=== PATIENT | female | born 1985 | race Caucasian/White ===

== ENCOUNTER 2016-10-30 21:24 | Emergency (ER) | payer MEDICAID ==
--- NOTE | 2016-10-30 21:32 | EDM.PDOC ---
ED HPI GENERAL MEDICAL PROBLEM - General Chief Complaint: Headache Stated Complaint: MYGRAIN Time Seen by Provider: 10/30/16 21:32 - History of Present Illness INITIAL COMMENTS - FREE TEXT/NARRATIVE: 1-year-old female presents emergency room with a very severe headache. The patient has almost daily headaches. She's been diagnosed migraines in the past she's recently moved up here from [place] she cannot recall which is taken form she's had this headache for over 24 hours it is much worse than normal and is not acting the same. Patient's has been even states that patients not right. Patient has severe bilateral pain she cannot recall how it started. She has some neck discomfort with this as well. Patient denies any recent fevers or chills she has some nausea no vomiting. Past medical history significant for recurrent almost daily headaches patient has had a tubal ligation no other medical concerns. Left Headache Pain Score (Numeric/FACES): 10 - Related Data Allergies Allergy/AdvReac Type Severity Reaction Status Date / Time morphine Allergy Hives Verified 10/30/16 21:34 Home Meds: Home Meds Levothyroxine [Synthroid] 100 mcg PO DAILY 10/30/16 [History] ED ROS GENERAL - Review of Systems Review Of Systems: See Below Constitutional: Reports: No Symptoms HEENT: Reports: Other (Photophobia) Respiratory: Reports: No Symptoms Cardiovascular: Reports: No Symptoms GI/Abdominal: Reports: Nausea. Denies: Abdominal Pain, Constipation, Diarrhea Neurological: Reports: Headache. Denies: Confusion, Dizziness, Numbness, Seizure, Difficulty Walking Psychiatric: Reports: No Symptoms - Physical Exam Exam: See Below Exam Limited By: No Limitations General Appearance: Alert, No Apparent Distress Eye Exam: Bilateral Eye: PERRL Ears: Normal External Exam, Normal Canal, Hearing Grossly Normal, Normal TMs Nose: Normal Inspection, Normal Mucosa, No Blood Throat/Mouth: Normal Inspection, Normal Lips, Normal Teeth, Normal Gums, Normal Oropharynx, Normal Voice, No Airway Compromise Head Exam: Atraumatic, Normocephalic Neck: Normal Inspection, Supple, Non-Tender, Full Range of Motion. No: Lymphadenopathy (L), Lymphadenopathy (R) Respiratory/Chest: No Respiratory Distress, Lungs Clear, Normal Breath Sounds Cardiovascular: Regular Rate, Rhythm, No Edema, No Murmur Neuro Exam (Abbreviated): Other (Cranial nerves II through XII grossly intact all muscle groups the upper extremities are equal and appropriate bilaterally. Limited lower extremity muscle testing is unrevealing) Course - Vital Signs Last Recorded V/S: Last Vital Signs Temp 36.3 C 10/30/16 21:32 Pulse 75 10/30/16 21:32 Resp 16 10/30/16 21:32 BP 120/92 H 10/30/16 21:32 Pulse Ox 98 10/30/16 21:32 - Orders/Labs/Meds Orders: Active Orders 24 hr Category Date Time Status Head wo Cont [CT] Stat Exams 10/30/16 21:43 Taken Meds: Medications Discontinued Medications Generic Name Dose Route Start Last Admin Trade Name Freq PRN Reason Stop Dose Admin Diphenhydramine HCl 50 mg 10/30/16 21:39 10/30/16 22:32 Benadryl IVPUSH 10/30/16 21:40 50 mg ONETIME ONE Administration Lactated Ringer's 1,000 mls @ 999 mls/hr 10/30/16 21:39 10/30/16 22:30 Ringers, Lactated IV 10/30/16 22:39 999 mls/hr .BOLUS ONE Administration Ketorolac Tromethamine 15 mg 10/30/16 23:41 10/30/16 23:45 Toradol IVPUSH 10/30/16 23:42 15 mg ONETIME ONE Administration Lidocaine HCl Confirm 10/30/16 22:16 Xylocaine 1% Administered 10/30/16 22:17 Dose 10 ml .ROUTE .STK-MED ONE Lidocaine HCl 10 ml 10/30/16 23:09 Xylocaine 1% INJECT 10/30/16 23:10 NOW STA Ondansetron HCl 4 mg 10/30/16 21:39 10/30/16 22:30 Zofran IVPUSH 10/30/16 21:40 4 mg ONETIME ONE Administration - Re-Assessments/Exams Free Text/Narrative Re-Assessment/Exam: 10/30/16 21:46 Patient is describing a headache much worse than she normally has with some neck tightness we'll go ahead and CT. 10/30/16 23:[address] is unremarkable she has received some Zofran and Benadryl with some improvement not quite to goal will give her 15 mg of Toradol. Anticipate discharge soon 10/30/16 23:58 Patient is doing better after getting the Toradol should this is been about 10 minutes she like to go home and get some rest Departure - Departure Time of Disposition: 23:58 Disposition: Home, Self-Care 01 Clinical Impression: Headache - Discharge Information Referrals: PCP,None [Primary Care Provider] - Forms: ED Department Discharge Additional Instructions: Return to the emergency room with any questions problems worsening symptoms. Diagnosis tonight is that of a headache with a history of migraines however the nature and character of this one was somewhat different, it certainly had some migrainous tendencies. Go home and get a good nights sleep he may drink clear liquids you get home but no heavy food. Follow-up in the Hospital clinic later this week to establish with a provider. [phone] - My Orders Last 24 Hours: My Active Orders 10/30/16 21:43 Head wo Cont [CT] Stat - Assessment/Plan Last 24 Hours: My Active Orders 10/30/16 21:43 Head wo Cont [CT] Stat
[2016-10-30 21:34] VITALS: BP 120/92
[2016-10-30] MEDS ORDERED: Ondansetron 4 MG/2 ML SDV IVPUSH ONE (21:39)
[2016-10-30] MEDS ORDERED: diphenhydrAMINE 50 MG/ML SDV IVPUSH ONE (21:39)
[2016-10-30] MEDS ORDERED: Lactated Ringers 1,000 ML IV ONE (21:39)
[2016-10-30] MEDS ORDERED: Lidocaine 1% 10 ML MDV ONE (22:16)
[2016-10-30] MEDS ORDERED: Lidocaine 1% 50 ML MDV INJECT STA (23:09)
[2016-10-30] MEDS ORDERED: Ketorolac 15 MG/ML SDV IVPUSH ONE (23:41)
--- NOTE | 2016-11-01 08:50 | CT ---
Head CT Technique: Multiple axial sections through the brain were obtained. Intravenous contrast was not utilized. Comparison: No previous intracranial imaging. Findings: Ventricles along with basal cisterns and sulci over the convexities are within normal limits for the patient's age. No abnormal parenchymal densities are seen. No evidence of intracranial hemorrhage. No midline shift or mass effect is seen. Bone window settings were reviewed which appear within normal limits for the patient's age. Visualized sinuses are clear. Impression: 1. No acute intracranial abnormality is identified on noncontrast head CT study. Diagnostic code #1 Agree with preliminary report issued by [facility] ([facility] preliminary report dictated on 10/30/16, 11:55 PM Central Time) [facility]
== END 2016-10-31 00:08 | disposition home or self-care (01) ==
LOC: JD.ED 21:24
DX: R51 Headache (principal); Z79.899 Other long term (current) drug therapy; Z88.5 Allergy status to narcotic agent; Z98.51 Tubal ligation status
CPT/HCPCS: 70450; 96361; 96374; 96375; 99284; J1200; J1885; J2405; J7120

== ENCOUNTER 2017-01-31 18:31 | Emergency (ER) | payer MEDICAID ==
[2017-01-31 18:52] VITALS: BP 125/86
[2017-01-31] MEDS ORDERED: Sodium Chloride 0.9% 10 ML Syringe FLUSH PRN ×2 (19:03→19:38)
[2017-01-31] MEDS ORDERED: HYDROmorphone 1 MG/ML Syringe IVPUSH ONE ×2 (19:05→22:10)
[2017-01-31] MEDS ORDERED: Ondansetron 4 MG/2 ML SDV IVPUSH ONE (19:05)
--- NOTE | 2017-01-31 19:11 | EDM.PDOC ---
ED HPI GENERAL MEDICAL PROBLEM - General Chief Complaint: Abdominal Pain Stated Complaint: NAUSEA,DIZZINESS,BACK PAIN Time Seen by Provider: 01/31/17 18:52 Source of Information: Reports: Patient, Family History Limitations: Reports: No Limitations - History of Present Illness INITIAL COMMENTS - FREE TEXT/NARRATIVE: The patient presents with left upper back pain that radiates to her chest. She said this started yesterday and she describes the pain as sharp. She says the pain is worse with taking a deep breath and she feels a little short of breath. She may have some upper abdominal pain She has nausea and she vomited yesterday. She had diarrhea also. She did not injury herself. She has a history of a PE years ago that she was treated for. She was not told what caused it. She does not smoke. She does not take control. She had no long car ride or plane ride. She has not had recent surgery. She has no edema or pain in he legs. She denies fever, chills, or cough. She has no numbness or weakness. Onset: Gradual Duration: Day(s): (Yesterday) Location: Reports: Chest, Back Quality: Reports: Sharp Severity: Moderate Improves with: Reports: None Worsens with: Reports: Breathing Context: Reports: Other (She did not injure her back) Associated Symptoms: Reports: Chest Pain, Nausea/Vomiting, Shortness of Breath. Denies: Cough, Fever/Chills, Headaches Left Upper Abdomen Pain Score (Numeric/FACES): 8 - Related Data Allergies Allergy/AdvReac Type Severity Reaction Status Date / Time morphine Allergy Hives Verified 01/31/17 18:46 Home Meds: Home Meds Levothyroxine [Synthroid] 75 mcg PO DAILY 10/30/16 [History] Hydrocodone/Acetaminophen [Hydrocodon-Acetaminophen 5-325] 1 - 2 each PO Q6HR PRN #20 tablet 01/31/17 [Rx] Naproxen [Naprosyn] 500 mg PO Q12HR PRN #30 tablet 01/31/17 [Rx] Ondansetron [Zofran ODT] 4 mg PO Q6H PRN #20 tab.dis 01/31/17 [Rx] metFORMIN HCl [Metformin HCl] 500 mg PO DAILY 01/31/17 [History] Past Medical History [employer] History: Reports: Neurological History: Reports: Migraines Endocrine/Metabolic History: Reports: Hypothyroidism Social & Family History - Tobacco Use Smoking Status *Q: Never Smoker Second Hand Smoke Exposure: No - Caffeine Use Caffeine Use: Reports: None - Recreational Drug Use Recreational Drug Use: No ED ROS GENERAL - Review of Systems Review Of Systems: See Below Constitutional: Reports: No Symptoms HEENT: Reports: No Symptoms Respiratory: Reports: Shortness of Breath. Denies: Cough Cardiovascular: Reports: Chest Pain Endocrine: Reports: No Symptoms GI/Abdominal: Reports: Abdominal Pain (Maybe some epigastric pain), Diarrhea, Nausea, Vomiting : Reports: No Symptoms Musculoskeletal: Reports: Back Pain (Left upper back) ED EXAM, GI/ABD - Physical Exam Exam: See Below Exam Limited By: No Limitations General Appearance: Alert, No Apparent Distress Ears: Normal External Exam Nose: Normal Inspection Head: Atraumatic, Normocephalic Neck: Normal Inspection Respiratory/Chest: No Respiratory Distress, Lungs Clear, Normal Breath Sounds Cardiovascular: Regular Rate, Rhythm, No Edema, No Murmur GI/Abdominal Exam: Soft, No Organomegaly, No Mass, Tender (Mild tenderness to the epigastric region) Back Exam: Other (Mild pain upon palpation to the left upper back) Extremities: Normal Inspection, Non-Tender. No: Pedal Edema Neurological: Alert, Oriented, No Motor/Sensory Deficits Course - Vital Signs Last Recorded V/S: Last Vital Signs Temp 98.4 F 01/31/17 18:48 Pulse 78 01/31/17 18:48 Resp 12 01/31/17 18:48 BP 125/86 01/31/17 18:48 Pulse Ox 98 01/31/17 18:48 Orthostatic Blood Pressure [ 123/84 Standing] Orthostatic Blood Pressure [ 116/83 Sitting] Orthostatic Blood Pressure [ 111/77 Supine] - Orders/Labs/Meds Orders: Active Orders 24 hr Category Date Time Status Cardiac Monitoring [RC] . DIRECTED Care 01/31/17 19:03 Active EKG Documentation Completion [RC] STAT Care 01/31/17 19:04 Active Oxygen Therapy [RC] PRN Care 01/31/17 19:03 Active Peripheral IV Care [RC] . DIRECTED Care 01/31/17 19:04 Active CXR [Chest 2V] [CR] Stat Exams 01/31/17 22:34 Taken Sodium Chloride 0.9% [Normal Saline] 1,000 ml Med 01/31/17 19:15 Active IV ASDIRECTED Sodium Chloride 0.9% [Normal Saline] 100 ml Med 01/31/17 19:45 Active IV ASDIRECTED Sodium Chloride 0.9% [Saline Flush] Med 01/31/17 19:03 Active 10 ml FLUSH ASDIRECTED PRN Sodium Chloride 0.9% [Saline Flush] Med 01/31/17 19:38 Active 10 ml FLUSH ONETIME PRN Peripheral IV Insertion Adult [OM.PC] Stat Oth 01/31/17 19:03 Ordered Medication Orders Sodium Chloride (Normal Saline) 1,000 mls @ 125 mls/hr IV ASDIRECTED EZIO Last Admin: 01/31/17 22:03 Dose: 125 mls/hr Sodium Chloride (Normal Saline) 100 mls @ 80 mls/hr IV ASDIRECTED EZIO Sodium Chloride (Saline Flush) 10 ml FLUSH ASDIRECTED PRN PRN Reason: Keep Vein Open Sodium Chloride (Saline Flush) 10 ml FLUSH ONETIME PRN PRN Reason: IV FLUSH Labs: Laboratory Tests 01/31/17 01/31/17 01/31/17 Range/Units 20:12 20:12 20:12 WBC 8.16 (3.98-10.04) K/mm3 RBC 4.87 (3.98-5.22) M/mm3 Hgb 13.6 (11.2-15.7) gm/L Hct 41.5 (34.1-44.9) % MCV 85.2 (79.4-94.8) fl MCH 27.9 (25.6-32.2) pg MCHC 32.8 (32.2-35.5) g/dl RDW Std Deviation 44.1 (36.4-46.3) fL Plt Count 261 (182-369) K/mm3 MPV 11.1 (9.4-12.3) fl Neut % (Auto) 61.0 (34.0-71.1) % Lymph % (Auto) 24.1 (19.3-51.7) % [place] % (Auto) 8.5 (4.7-12.5) % Eos % (Auto) 5.8 (0.7-5.8) Baso % (Auto) 0.2 (0.1-1.2) % Neut # (Auto) 4.98 (1.56-6.13) K/mm3 Lymph # (Auto) 1.97 (1.18-3.74) K/mm3 [place] # (Auto) 0.69 H (0.24-0.36) K/mm3 Eos # (Auto) 0.47 H (0.04-0.36) K/mm3 Baso # (Auto) 0.02 (0.01-0.08) K/mm3 D-Dimer, Quantitative (0.19-0.59) mg/L Sodium 141 (136-145) mEq/L Potassium 3.5 (3.5-5.1) mEq/L Chloride 108 H (98-107) mEq/L Carbon Dioxide 23 (21-32) mEq/L Anion Gap 13.5 (5-15) BUN 15 (7-18) mg/dL Creatinine 0.9 (0.55-1.02) mg/dL Est Cr Clr Drug Dosing 74.23 mL/min Estimated GFR (MDRD) > 60 (>60) mL/min BUN/Creatinine Ratio 16.7 (14-18) Glucose 93 (74-106) mg/dL Calcium 9.1 (8.5-10.1) mg/dL Total Bilirubin 0.3 (0.2-1.0) mg/dL AST 27 (15-37) U/L ALT 42 (14-59) U/L Alkaline Phosphatase 44 L (46-116) U/L Troponin I < 0.017 (0.00-0.056) ng/mL Total Protein 7.4 (6.4-8.2) g/dl Albumin 3.6 (3.4-5.0) g/dl Globulin 3.8 gm/dL Albumin/Globulin Ratio 1.0 (1-2) Lipase 155 (73-393) U/L HCG, Qual Negative (NEGATIVE) Urine Color (Yellow) Urine Appearance (Clear) Urine pH (5.0-8.0) Ur Specific [place] (1.005-1.030) Urine Protein (Negative) Urine Glucose (UA) (Negative) Urine Ketones (Negative) Urine Occult Blood (Negative) Urine Nitrite (Negative) Urine Bilirubin (Negative) Urine Urobilinogen (0.2-1.0) Ur Leukocyte Esterase (Negative) Urine RBC (0-5) /hpf Urine WBC (0-5) /hpf Ur Epithelial Cells (0-5) /hpf Urine Bacteria (FEW) /hpf Urine Mucus (FEW) /hpf 01/31/17 01/31/17 Range/Units 21:12 22:07 WBC (3.98-10.04) K/mm3 RBC (3.98-5.22) M/mm3 Hgb (11.2-15.7) gm/L Hct (34.1-44.9) % MCV (79.4-94.8) fl MCH (25.6-32.2) pg MCHC (32.2-35.5) g/dl RDW Std Deviation (36.4-46.3) fL Plt Count (182-369) K/mm3 MPV (9.4-12.3) fl Neut % (Auto) (34.0-71.1) % Lymph % (Auto) (19.3-51.7) % [place] % (Auto) (4.7-12.5) % Eos % (Auto) (0.7-5.8) Baso % (Auto) (0.1-1.2) % Neut # (Auto) (1.56-6.13) K/mm3 Lymph # (Auto) (1.18-3.74) K/mm3 [place] # (Auto) (0.24-0.36) K/mm3 Eos # (Auto) (0.04-0.36) K/mm3 Baso # (Auto) (0.01-0.08) K/mm3 D-Dimer, Quantitative 0.59 (0.19-0.59) mg/L Sodium (136-145) mEq/L Potassium (3.5-5.1) mEq/L Chloride (98-107) mEq/L Carbon Dioxide (21-32) mEq/L Anion Gap (5-15) BUN (7-18) mg/dL Creatinine (0.55-1.02) mg/dL Est Cr Clr Drug Dosing mL/min Estimated GFR (MDRD) (>60) mL/min BUN/Creatinine Ratio (14-18) Glucose (74-106) mg/dL Calcium (8.5-10.1) mg/dL Total Bilirubin (0.2-1.0) mg/dL AST (15-37) U/L ALT (14-59) U/L Alkaline Phosphatase (46-116) U/L Troponin I (0.00-0.056) ng/mL Total Protein (6.4-8.2) g/dl Albumin (3.4-5.0) g/dl Globulin gm/dL Albumin/Globulin Ratio (1-2) Lipase (73-393) U/L HCG, Qual (NEGATIVE) Urine Color Yellow (Yellow) Urine Appearance Clear (Clear) Urine pH 6.0 (5.0-8.0) Ur Specific [place] 1.025 (1.005-1.030) Urine Protein Negative (Negative) Urine Glucose (UA) Negative (Negative) Urine Ketones Negative (Negative) Urine Occult Blood 3+ H (Negative) Urine Nitrite Negative (Negative) Urine Bilirubin Negative (Negative) Urine Urobilinogen 0.2 (0.2-1.0) Ur Leukocyte Esterase Negative (Negative) Urine RBC 30-40 H (0-5) /hpf Urine WBC Not seen (0-5) /hpf Ur Epithelial Cells Not seen (0-5) /hpf Urine Bacteria Few (FEW) /hpf Urine Mucus Moderate H (FEW) /hpf Meds: Medications Generic Name Dose Route Start Last Admin Trade Name Freq PRN Reason Stop Dose Admin Sodium Chloride 1,000 mls @ 125 mls/hr 01/31/17 19:15 01/31/17 22:03 Normal Saline IV 125 mls/hr ASDIRECTED EZIO Administration Sodium Chloride 100 mls @ 80 mls/hr 01/31/17 19:45 Normal Saline IV ASDIRECTED EZIO Sodium Chloride 10 ml 01/31/17 19:03 Saline Flush FLUSH ASDIRECTED PRN Keep Vein Open Sodium Chloride 10 ml 01/31/17 19:38 Saline Flush FLUSH ONETIME PRN IV FLUSH Discontinued Medications Generic Name Dose Route Start Last Admin Trade Name Freq PRN Reason Stop Dose Admin Hydromorphone HCl 1 mg 01/31/17 19:05 Dilaudid IVPUSH 01/31/17 19:06 ONETIME ONE Hydromorphone HCl 1 mg 01/31/17 20:06 01/31/17 20:14 Dilaudid IM 01/31/17 20:07 1 mg ONETIME ONE Administration Hydromorphone HCl 1 mg 01/31/17 22:10 01/31/17 22:14 Dilaudid IVPUSH 01/31/17 22:11 1 mg ONETIME ONE Administration Lidocaine HCl Confirm 01/31/17 21:26 Xylocaine-Mpf 1% Administered 01/31/17 21:27 Dose 2 mls @ as directed .ROUTE .STK-MED ONE Iopamidol 100 ml 01/31/17 19:38 Isovue-370 (76%) IVPUSH 01/31/17 19:39 ONETIME ONE Ketorolac Tromethamine 30 mg 01/31/17 23:08 01/31/17 23:12 Toradol IVPUSH 01/31/17 23:09 30 mg ONETIME ONE Administration Ondansetron HCl 4 mg 01/31/17 19:05 Zofran IVPUSH 01/31/17 19:06 ONETIME ONE Ondansetron HCl 4 mg 01/31/17 20:05 01/31/17 20:13 Zofran Odt PO 01/31/17 20:06 4 mg ONETIME ONE Administration - Re-Assessments/Exams Free Text/Narrative Re-Assessment/Exam: 01/31/17 19:11 I ordered an IV NS at 125mL/hr, zofran 4mg IV, dilaudid 1mg IV, labs, UA, EKG and a CT angio of her chest. 01/31/17 23:16 Her EKG shows a NSR with no acute changes. My nurses could not get an IV with multiple attempts. We called in Katie one of our CRNAs and she was able to get a small IV. I could not get the angio of her chest. I then added a D-dimer that was negative. Her CBC and CMP look good. Her troponin is negative. Her HCG was negative. Her UA had some blood but she is on her period. I had to give her the zofran orally and the dilaudid IM. She had more pain so I gave her more dilaudid IV. This appears to be some pleurisy. I will give her some toradol here and I will get her a prescription for naprosyn, hydrocodone and some zofran. Departure - Departure Time of Disposition: 23:20 Disposition: Home, Self-Care 01 Condition: Good Clinical Impression: Pleurisy, Nausea - Discharge Information Prescriptions: Hydrocodone/Acetaminophen [Hydrocodon-Acetaminophen 5-325] 1 - 2 each PO Q6HR PRN #20 tablet PRN Reason: Pain Naproxen [Naprosyn] 500 mg PO Q12HR PRN #30 tablet PRN Reason: Pain Ondansetron [Zofran ODT] 4 mg PO Q6H PRN #20 tab.dis PRN Reason: Nausea/Vomiting Referrals: Carol Bal MD [Primary Care Provider] - 1 Week Forms: ED Department Discharge Additional Instructions: Take the zofran as needed for nausea. Take the naprosyn and hydrocodone as needed for pain. Follow up with Dr Bal next week. Please return if you are worse such as more chest pain, shortness of breath or it you cannot keep any food or water down or if you do not feel right. - My Orders Last 24 Hours: My Active Orders 01/31/17 19:03 Cardiac Monitoring [RC] . DIRECTED Oxygen Therapy [RC] PRN Sodium Chloride 0.9% [Saline Flush] 10 ml FLUSH ASDIRECTED PRN Peripheral IV Insertion Adult [OM.PC] Stat 01/31/17 19:04 EKG Documentation Completion [RC] STAT Peripheral IV Care [RC] . DIRECTED 01/31/17 19:15 Sodium Chloride 0.9% [Normal Saline] 1,000 ml IV ASDIRECTED 01/31/17 19:38 Sodium Chloride 0.9% [Saline Flush] 10 ml FLUSH ONETIME PRN 01/31/17 19:45 Sodium Chloride 0.9% [Normal Saline] 100 ml IV ASDIRECTED 01/31/17 22:34 CXR [Chest 2V] [CR] Stat - Assessment/Plan Last 24 Hours: My Active Orders 01/31/17 19:03 Cardiac Monitoring [RC] . DIRECTED Oxygen Therapy [RC] PRN Sodium Chloride 0.9% [Saline Flush] 10 ml FLUSH ASDIRECTED PRN Peripheral IV Insertion Adult [OM.PC] Stat 01/31/17 19:04 EKG Documentation Completion [RC] STAT Peripheral IV Care [RC] . DIRECTED 01/31/17 19:15 Sodium Chloride 0.9% [Normal Saline] 1,000 ml IV ASDIRECTED 01/31/17 19:38 Sodium Chloride 0.9% [Saline Flush] 10 ml FLUSH ONETIME PRN 01/31/17 19:45 Sodium Chloride 0.9% [Normal Saline] 100 ml IV ASDIRECTED 01/31/17 22:34 CXR [Chest 2V] [CR] Stat
[2017-01-31] MEDS ORDERED: Sodium Chloride 0.9% 1,000 ML IV SCH (19:15)
[2017-01-31] MEDS ORDERED: Iopamidol 755 Mg/ML 100 ML Bottle IVPUSH ONE (19:38)
[2017-01-31] MEDS ORDERED: Sodium Chloride 0.9% 100 ML IV SCH (19:45)
[2017-01-31] MEDS ORDERED: Ondansetron 4 MG Tab.DIS PO ONE (20:05)
[2017-01-31] MEDS ORDERED: HYDROmorphone 1 MG/ML Syringe IM ONE (20:06)
[2017-01-31] MEDS ORDERED: Lidocaine 1% 2 ML ONE (21:26)
--- NOTE | 2017-01-31 22:01 | PCM.SN ---
- Free Text/Narrative Note: Start: 2030 Stop: 2153 Anesthesia requested for IV start/IV access for CT with contrast. 22 gauge to right inner wrist started times 3 attempts. Site localized with 1% lidocaine, patient tolerated procedure well. Site patent and intact, flushed with 20 ml's of normal saline. Attempted to access antecubital right arm via US for CT scan times one attempt with no success.
[2017-01-31] MEDS ORDERED: Ketorolac 30 MG/ML SDV IVPUSH ONE (23:08)
--- NOTE | 2017-02-01 08:58 | CR ---
Chest: Two views of the chest were obtained. Comparison: No prior chest x-ray. Heart size and mediastinum are normal. Lungs are clear. Bony structures are unremarkable. Surgical clips incidentally are noted from prior cholecystectomy. Impression: 1. Nothing acute is identified on two-view chest x-ray. Diagnostic code #2
== END 2017-01-31 23:30 | disposition home or self-care (01) ==
LOC: SUPCPDRO 18:31 → JD.ED 18:31
DX: R09.1 Pleurisy (principal); R11.0 Nausea; E03.9 Hypothyroidism, unspecified; Z79.84 Long term (current) use of oral hypoglycemic drugs; Z79.899 Other long term (current) drug therapy; Z88.5 Allergy status to narcotic agent
CPT/HCPCS: 36415; 71020; 80053; 81001; 83690; 84484; 84703; 85025; 85379; 93005; 96361; 96372; 96374; 96375; 99284; A9270; J1170; J1885; J7040; 93010

== ENCOUNTER 2017-02-06 13:19 | Emergency (ER) | payer SELFPAY ==
[2017-02-06 13:43] VITALS: BP 132/93
[2017-02-06] MEDS ORDERED: Ondansetron 4 MG/2 ML SDV IVPUSH ONE (14:15)
[2017-02-06] MEDS ORDERED: Sodium Chloride 0.9% 10 ML Syringe FLUSH PRN (14:15)
[2017-02-06] MEDS ORDERED: Sodium Chloride 0.9% 1,000 ML IV STA (14:15)
[2017-02-06] MEDS ORDERED: HYDROmorphone 1 MG/ML Syringe IVPUSH ONE (14:17)
--- NOTE | 2017-02-06 16:31 | EDM.PDOC ---
ED HPI GENERAL MEDICAL PROBLEM - General Chief Complaint: Gastrointestinal Problem Stated Complaint: NAUSEA,CHEST PAIN, BLOOD IN URINE Time Seen by Provider: 02/06/17 13:43 Source of Information: Reports: Patient History Limitations: Reports: No Limitations - History of Present Illness INITIAL COMMENTS - FREE TEXT/NARRATIVE: The patient presents with nausea and lower abdominal pain. That started a few days ago. The pain is cramping at times. She also had some blood from her stool. She has decreased appetite. She was in the ER 1 week ago for chest pain. That is better but not gone. She did stop the eleve she was on. She has no diarrhea. She has no fever or chills. She has no dysuria. She does not have a gallbladder or an appendix. Onset: Gradual Duration: Day(s): (3) Location: Reports: Abdomen Quality: Reports: Other (Cramping) Severity: Moderate Improves with: Reports: None Worsens with: Reports: None Associated Symptoms: Reports: Chest Pain. Denies: Cough, Fever/Chills, Nausea/ Vomiting, Shortness of Breath Abdomen Pain Score (Numeric/FACES): 8 - Related Data Allergies Allergy/AdvReac Type Severity Reaction Status Date / Time morphine Allergy Hives Verified 02/06/17 13:38 Home Meds: Home Meds Levothyroxine [Synthroid] 75 mcg PO DAILY 10/30/16 [History] Ondansetron [Zofran ODT] 4 mg PO Q6H PRN #20 tab.dis 01/31/17 [Rx] metFORMIN HCl [Metformin HCl] 500 mg PO DAILY 01/31/17 [History] Ondansetron [Zofran ODT] 4 mg PO Q6H PRN #20 tab.dis 02/06/17 [Rx] Past Medical History [employer] History: Reports: Neurological History: Reports: Migraines Endocrine/Metabolic History: Reports: Hypothyroidism, Other (See Below) Other Endocrine/Metabolic History: recently started on Metformin for insulin resistance Social & Family History - Tobacco Use Smoking Status *Q: Never Smoker Second Hand Smoke Exposure: Yes - Caffeine Use Caffeine Use: Reports: Coffee, Energy Drinks - Recreational Drug Use Recreational Drug Use: No ED ROS GENERAL - Review of Systems Review Of Systems: See Below Constitutional: Reports: No Symptoms HEENT: Reports: No Symptoms Respiratory: Reports: No Symptoms Cardiovascular: Reports: Chest Pain Endocrine: Reports: No Symptoms GI/Abdominal: Reports: Abdominal Pain, Nausea : Reports: No Symptoms Musculoskeletal: Reports: No Symptoms Skin: Reports: No Symptoms ED EXAM, GI/ABD - Physical Exam Exam: See Below Exam Limited By: No Limitations General Appearance: Alert, No Apparent Distress Ears: Normal External Exam Nose: Normal Inspection Head: Atraumatic, Normocephalic Neck: Normal Inspection Respiratory/Chest: No Respiratory Distress, Lungs Clear, Normal Breath Sounds Cardiovascular: Regular Rate, Rhythm, No Edema, No Murmur GI/Abdominal Exam: Soft, No Organomegaly, No Mass, Tender (Moderate pain upon palpation to the lower abdomen) Course - Vital Signs Last Recorded V/S: Last Vital Signs Temp 98.0 F 02/06/17 13:39 Pulse 85 02/06/17 13:39 Resp 18 02/06/17 13:39 BP 132/93 H 02/06/17 13:39 Pulse Ox 96 02/06/17 13:39 - Orders/Labs/Meds Orders: Active Orders 24 hr Category Date Time Status Peripheral IV Care [RC] . DIRECTED Care 02/06/17 14:16 Active Abdomen Series w Chest 1V [CR] Stat Exams 02/06/17 14:15 Taken Sodium Chloride 0.9% [Saline Flush] Med 02/06/17 14:15 Active 10 ml FLUSH ASDIRECTED PRN ED Antiemetic Medication Reflex [OM.PC] Stat Oth 02/06/17 14:15 Ordered Peripheral IV Insertion Adult [OM.PC] Stat Oth 02/06/17 14:15 Ordered Medication Orders Sodium Chloride (Saline Flush) 10 ml FLUSH ASDIRECTED PRN PRN Reason: Keep Vein Open Last Admin: 02/06/17 14:32 Dose: 10 ml Labs: Laboratory Tests 02/06/17 02/06/17 02/06/17 Range/Units 14:00 14:00 14:00 WBC 10.96 H (3.98-10.04) K/mm3 RBC 4.77 (3.98-5.22) M/mm3 Hgb 13.2 (11.2-15.7) gm/L Hct 41.5 (34.1-44.9) % MCV 87.0 (79.4-94.8) fl MCH 27.7 (25.6-32.2) pg MCHC 31.8 L (32.2-35.5) g/dl RDW Std Deviation 45.6 (36.4-46.3) fL Plt Count 319 (182-369) K/mm3 MPV 11.4 (9.4-12.3) fl Neut % (Auto) 74.3 H (34.0-71.1) % Lymph % (Auto) 17.9 L (19.3-51.7) % [place] % (Auto) 3.6 L (4.7-12.5) % Eos % (Auto) 3.7 (0.7-5.8) Baso % (Auto) 0.3 (0.1-1.2) % Neut # (Auto) 8.15 H (1.56-6.13) K/mm3 Lymph # (Auto) 1.96 (1.18-3.74) K/mm3 [place] # (Auto) 0.39 H (0.24-0.36) K/mm3 Eos # (Auto) 0.41 H (0.04-0.36) K/mm3 Baso # (Auto) 0.03 (0.01-0.08) K/mm3 Sodium 140 (136-145) mEq/L Potassium 4.5 (3.5-5.1) mEq/L Chloride 110 H (98-107) mEq/L Carbon Dioxide 21 (21-32) mEq/L Anion Gap 13.5 (5-15) BUN 12 (7-18) mg/dL Creatinine 0.8 (0.55-1.02) mg/dL Est Cr Clr Drug Dosing 83.51 mL/min Estimated GFR (MDRD) > 60 (>60) mL/min BUN/Creatinine Ratio 15.0 (14-18) Glucose 121 H (74-106) mg/dL Calcium 9.2 (8.5-10.1) mg/dL Total Bilirubin 0.2 (0.2-1.0) mg/dL AST 33 (15-37) U/L ALT 43 (14-59) U/L Alkaline Phosphatase 44 L (46-116) U/L Troponin I < 0.017 (0.00-0.056) ng/mL Total Protein 7.6 (6.4-8.2) g/dl Albumin 3.6 (3.4-5.0) g/dl Globulin 4.0 gm/dL Albumin/Globulin Ratio 0.9 L (1-2) Lipase 176 (73-393) U/L HCG, Qual Negative (NEGATIVE) Urine Color (Yellow) Urine Appearance (Clear) Urine pH (5.0-8.0) Ur Specific [place] (1.005-1.030) Urine Protein (Negative) Urine Glucose (UA) (Negative) Urine Ketones (Negative) Urine Occult Blood (Negative) Urine Nitrite (Negative) Urine Bilirubin (Negative) Urine Urobilinogen (0.2-1.0) Ur Leukocyte Esterase (Negative) Urine RBC (0-5) /hpf Urine WBC (0-5) /hpf Ur Epithelial Cells (0-5) /hpf Amorphous Sediment (NOT SEEN) /hpf Urine Bacteria (FEW) /hpf Urine Mucus (FEW) /hpf 02/06/17 Range/Units 14:30 WBC (3.98-10.04) K/mm3 RBC (3.98-5.22) M/mm3 Hgb (11.2-15.7) gm/L Hct (34.1-44.9) % MCV (79.4-94.8) fl MCH (25.6-32.2) pg MCHC (32.2-35.5) g/dl RDW Std Deviation (36.4-46.3) fL Plt Count (182-369) K/mm3 MPV (9.4-12.3) fl Neut % (Auto) (34.0-71.1) % Lymph % (Auto) (19.3-51.7) % [place] % (Auto) (4.7-12.5) % Eos % (Auto) (0.7-5.8) Baso % (Auto) (0.1-1.2) % Neut # (Auto) (1.56-6.13) K/mm3 Lymph # (Auto) (1.18-3.74) K/mm3 [place] # (Auto) (0.24-0.36) K/mm3 Eos # (Auto) (0.04-0.36) K/mm3 Baso # (Auto) (0.01-0.08) K/mm3 Sodium (136-145) mEq/L Potassium (3.5-5.1) mEq/L Chloride (98-107) mEq/L Carbon Dioxide (21-32) mEq/L Anion Gap (5-15) BUN (7-18) mg/dL Creatinine (0.55-1.02) mg/dL Est Cr Clr Drug Dosing mL/min Estimated GFR (MDRD) (>60) mL/min BUN/Creatinine Ratio (14-18) Glucose (74-106) mg/dL Calcium (8.5-10.1) mg/dL Total Bilirubin (0.2-1.0) mg/dL AST (15-37) U/L ALT (14-59) U/L Alkaline Phosphatase (46-116) U/L Troponin I (0.00-0.056) ng/mL Total Protein (6.4-8.2) g/dl Albumin (3.4-5.0) g/dl Globulin gm/dL Albumin/Globulin Ratio (1-2) Lipase (73-393) U/L HCG, Qual (NEGATIVE) Urine Color Yellow (Yellow) Urine Appearance Clear (Clear) Urine pH 7.0 (5.0-8.0) Ur Specific [place] 1.020 (1.005-1.030) Urine Protein Negative (Negative) Urine Glucose (UA) Negative (Negative) Urine Ketones Negative (Negative) Urine Occult Blood Negative (Negative) Urine Nitrite Negative (Negative) Urine Bilirubin Negative (Negative) Urine Urobilinogen 0.2 (0.2-1.0) Ur Leukocyte Esterase Negative (Negative) Urine RBC 0-5 (0-5) /hpf Urine WBC 0-5 (0-5) /hpf Ur Epithelial Cells 0-5 (0-5) /hpf Amorphous Sediment Moderate H (NOT SEEN) /hpf Urine Bacteria Few (FEW) /hpf Urine Mucus Few (FEW) /hpf Meds: Medications Generic Name Dose Route Start Last Admin Trade Name Freq PRN Reason Stop Dose Admin Sodium Chloride 10 ml 02/06/17 14:15 02/06/17 14:32 Saline Flush FLUSH 10 ml ASDIRECTED PRN Administration Keep Vein Open Discontinued Medications Generic Name Dose Route Start Last Admin Trade Name Freq PRN Reason Stop Dose Admin Hydromorphone HCl 1 mg 02/06/17 14:17 02/06/17 14:39 Dilaudid IVPUSH 02/06/17 14:18 1 mg ONETIME ONE Administration Sodium Chloride 1,000 mls @ 1,000 mls/hr 02/06/17 14:15 02/06/17 14:30 Normal Saline IV 02/06/17 15:14 1,000 mls/hr .BOLUS STA Administration Ondansetron HCl 4 mg 02/06/17 14:15 02/06/17 14:37 Zofran IVPUSH 02/06/17 14:16 4 mg ONETIME ONE Administration - Re-Assessments/Exams Free Text/Narrative Re-Assessment/Exam: 02/06/17 16:32 I ordered an IV NS 1L bolus, zofran 4mg IV, dilaudid 1mg IV, labs and UA. Her CBC looks good. Her CMP shows a slightly elevated glucose 121. Her troponin is negative. Her HCG is negative. Her UA shows no UTI. She feels better. I will get her on some zofran. Departure - Departure Time of Disposition: 16:35 Disposition: Home, Self-Care 01 Condition: Good Clinical Impression: Abdominal pain, Gastroenteritis - Discharge Information Prescriptions: Ondansetron [Zofran ODT] 4 mg PO Q6H PRN #20 tab.dis PRN Reason: Nausea/Vomiting Referrals: Didi Bal, [employer] [Primary Care Provider] - 2 Days Additional Instructions: Take zofran as needed for nausea and vomiting. Follow up with Didi Bal. Please return if you are worse. - My Orders Last 24 Hours: My Active Orders 02/06/17 14:15 Abdomen Series w Chest 1V [CR] Stat Sodium Chloride 0.9% [Saline Flush] 10 ml FLUSH ASDIRECTED PRN ED Antiemetic Medication Reflex [OM.PC] Stat Peripheral IV Insertion Adult [OM.PC] Stat 02/06/17 14:16 Peripheral IV Care [RC] . DIRECTED - Assessment/Plan Last 24 Hours: My Active Orders 02/06/17 14:15 Abdomen Series w Chest 1V [CR] Stat Sodium Chloride 0.9% [Saline Flush] 10 ml FLUSH ASDIRECTED PRN ED Antiemetic Medication Reflex [OM.PC] Stat Peripheral IV Insertion Adult [OM.PC] Stat 02/06/17 14:16 Peripheral IV Care [RC] . DIRECTED
--- NOTE | 2017-02-07 07:07 | CR ---
Abdominal series: Frontal view of the chest was obtained as well as supine and upright views of the abdomen. Comparison: Prior chest x-ray of 01/31/17. Heart size and mediastinum are normal. Lungs are clear. No free air is seen. Surgical clips are seen from prior cholecystectomy. Previous sterilization clips are present within the pelvis. Bowel gas pattern is normal. No abnormal calcifications or soft tissue abnormality is seen. Impression: 1. Incidental findings. Nothing acute is seen on abdominal series. Diagnostic code #2
== END 2017-02-06 16:50 | disposition home or self-care (01) ==
LOC: JD.ED 13:19
DX: K52.9 Noninfective gastroenteritis and colitis, unspecified (principal); Z88.5 Allergy status to narcotic agent; Z79.84 Long term (current) use of oral hypoglycemic drugs; Z79.899 Other long term (current) drug therapy
CPT/HCPCS: 36415; 74022; 80053; 81001; 83690; 84484; 84703; 85025; 96361; 96374; 96375; 99284; J1170; J2405; J7040; J7050

== ENCOUNTER 2017-02-08 00:03 | Emergency (ER) | payer SELFPAY ==
[2017-02-08 00:14] VITALS: BP 116/103
[2017-02-08] MEDS ORDERED: Sodium Chloride 0.9% 1,000 ML IV SCH (01:45)
--- NOTE | 2017-02-08 01:48 | EDM.PDOC ---
ED HPI GENERAL MEDICAL PROBLEM - General Chief Complaint: Abdominal Pain Stated Complaint: LOWER ABDOINAL PAIN ECT Time Seen by Provider: 02/08/17 00:49 Source of Information: Reports: Patient, Family (), Old Records, RN Notes Reviewed History Limitations: Reports: No Limitations - History of Present Illness INITIAL COMMENTS - FREE TEXT/NARRATIVE: Medical records indicate that the patient was seen in this ED on , 01/31 with a complaint of left upper back pain radiating to her chest, upper abdominal pain, nausea, vomiting, and diarrhea. A CBC, CMP, troponin, lipase, D- dimer, urine test, ECG, and chest radiograph were all unremarkable. The patient's urinalysis found 30-40 RBCs and 3+ occult blood, however, the patient was on her menstrual period at this time. She was given 3 mg IV Dilaudid , 30 mg IV Toradol, 4 mg IV Zofran and 4 mg of oral Zofran, and IV fluid, before being discharged home with prescriptions for 20 tablets [place] 5/325, 30 tablets naproxen 500 mg, and 20 tablets Zofran ODT 4 mg, and a diagnosis of pleurisy and nausea. She returned to the ED this past 02/06/2017 with a complaint of nausea , decreased appetite, lower abdominal pain, and a blood in her stool. The previous chest pain and diarrhea had resolved. A CBC, CMP, troponin, lipase, urinalysis, urine test, and radiographs of her chest and abdomen were all unremarkable. She was given 1 mg IV Dilaudid, 4 mg IV Zofran, and IV fluid before being discharged home with a prescription for 20 tablets Zofran 4 mg ODT and a diagnosis of abdominal pain and gastroenteritis. The patient states that she followed up with her PCP, Avelina Bal, yesterday , , 02/07/2017. She states that blood work was drawn, and a CT scan of the abdomen and pelvis was scheduled for 10:00 this morning. The patient states that she has been taking ibuprofen 600 mg every 4-6 hours, along with the previously prescribed Zofran. She now presents with a complaint of suprapubic pain since 02/05/2017. It is sharp and stabbing in character. She reports painful bowel movements since 02/06/2017, and recalls having a blood in her bowel movement that same day. She also reports some mucousy rectal discharge for the past 2 days. She reports low back pain since yesterday, 02/07/2017. She reports a subjective fever, with chills. She states that she has had nausea, with no emesis. She denies urinary symptoms. 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: Endocrine/Metabolic History: Reports: Diabetes, Type II, Hypothyroidism, Obesity /BMI 30+ - Past Surgical History GI Surgical History: Reports: Appendectomy, Cholecystectomy, Hernia, Abdominal Female Surgical History: Reports: Section (x 4), Tubal Ligation Social & Family History - Family History Family Medical History: Noncontributory - Tobacco Use Smoking Status *Q: Never Smoker Second Hand Smoke Exposure: Yes - Caffeine Use Caffeine Use: Reports: Coffee, Energy Drinks - Alcohol Use Alcohol Use History: Yes Alcohol Use Frequency: Socially - Recreational Drug Use Recreational Drug Use: No - Living Situation & Occupation Living situation: Reports: , with Spouse, with Family (8 kids) Occupation: Unemployed ED ROS GENERAL - Review of Systems Review Of Systems: See Below Constitutional: Reports: No Symptoms HEENT: Reports: No Symptoms Respiratory: Reports: No Symptoms Cardiovascular: Reports: Chest Pain (as per the HPI) Endocrine: Reports: No Symptoms GI/Abdominal: Reports: Abdominal Pain (as per the HPI), Bloody Stool (as per the HPI), Diarrhea (as per the HPI), Decreased Appetite (as per the HPI), Mucous in Stool (as per the HPI), Nausea (as per the HPI), Vomiting (as per the HPI) : Reports: No Symptoms Musculoskeletal: Reports: Back Pain (as per the HPI) Skin: Reports: No Symptoms Neurological: Reports: No Symptoms Psychiatric: Reports: No Symptoms Hematologic/Lymphatic: Reports: No Symptoms Immunologic: Reports: No Symptoms ED EXAM, GI/ABD - Physical Exam Exam: See Below Exam Limited By: No Limitations General Appearance: Alert, WD/WN, No Apparent Distress Eyes: Bilateral: Normal Appearance, EOMI Ears: Normal External Exam, Hearing Grossly Normal Nose: Normal Inspection, No Blood Throat/Mouth: Normal Inspection, Normal Lips, Normal Voice, No Airway Compromise Head: Atraumatic, Normocephalic Neck: Normal Inspection, Full Range of Motion Respiratory/Chest: No Respiratory Distress, Lungs Clear, Normal Breath Sounds, No Accessory Muscle Use Cardiovascular: Normal Peripheral Pulses, Regular Rate, Rhythm, No Gallop, No JVD, No Murmur, No Rub GI/Abdominal Exam: Normal Bowel Sounds, Soft, No Organomegaly, No Distention, No Abnormal Bruit, No Mass, Tender (Generalized, but more tender in the suprapubic region and elsewhere. No area was nontender.), Other (Obese). No: Rebound Rectal (Female) Exam: Normal Rectal Tone, Tenderness (No visible abnormalities, however, a full rectal exam was not possible, due to intolerable tenderness. No stool for Hemoccult testing was able to be acquired.) Back Exam: Normal Inspection, Full Range of Motion. No: CVA Tenderness (L), CVA Tenderness (R) Extremities: Normal Inspection, Normal Range of Motion, No Pedal Edema, Normal Capillary Refill Neurological: Alert, Oriented, Normal Cognition, No Motor/Sensory Deficits Psychiatric: Normal Affect, Anxious Skin Exam: Warm, Dry, Intact, Normal Color, No Rash Course - Vital Signs Last Recorded V/S: Last Vital Signs Temp 35.6 C 02/08/17 00:10 Pulse 94 02/08/17 00:10 Resp 16 02/08/17 00:10 BP 116/103 H 02/08/17 00:10 Pulse Ox 98 02/08/17 00:10 - Orders/Labs/Meds Orders: Active Orders 24 hr Category Date Time Status Abdomen Pelvis w Cont [CT] Stat Exams 02/08/17 01:37 Taken CULTURE URINE [RM] Stat Lab 02/08/17 03:35 Received Sodium Chloride 0.9% [Normal Saline] 1,000 ml Med 02/08/17 01:45 Active IV ASDIRECTED Medication Orders Sodium Chloride (Normal Saline) 1,000 mls @ 150 mls/hr IV ASDIRECTED EZIO Last Admin: 02/08/17 01:56 Dose: 150 mls/hr Labs: Laboratory Tests 02/08/17 02/08/17 02/08/17 Range/Units 01:45 01:45 03:35 WBC 14.28 H (3.98-10.04) K/mm3 RBC 4.45 (3.98-5.22) M/mm3 Hgb 12.3 (11.2-15.7) gm/L Hct 38.6 (34.1-44.9) % MCV 86.7 (79.4-94.8) fl MCH 27.6 (25.6-32.2) pg MCHC 31.9 L (32.2-35.5) g/dl RDW Std Deviation 45.8 (36.4-46.3) fL Plt Count 339 (182-369) K/mm3 MPV 10.9 (9.4-12.3) fl Neutrophils % (Manual) 75 H (40-60) % Band Neutrophils % 0 (0-10) % Lymphocytes % (Manual) 22 (20-40) % Atypical Lymphs % 0 % Monocytes % (Manual) 1 L (2-10) % Eosinophils % (Manual) 2 (0.7-5.8) % Basophils % (Manual) 0 L (0.1-1.2) Platelet Estimate Adequate Plt Morphology Comment Normal RBC Morph Comment Normal Sodium 142 (136-145) mEq/L Potassium 3.8 (3.5-5.1) mEq/L Chloride 111 H (98-107) mEq/L Carbon Dioxide 22 (21-32) mEq/L Anion Gap 12.8 (5-15) BUN 13 (7-18) mg/dL Creatinine 0.9 (0.55-1.02) mg/dL Est Cr Clr Drug Dosing 74.23 mL/min Estimated GFR (MDRD) > 60 (>60) mL/min BUN/Creatinine Ratio 14.4 (14-18) Glucose 112 H (74-106) mg/dL Calcium 9.0 (8.5-10.1) mg/dL Total Bilirubin 0.2 (0.2-1.0) mg/dL AST 19 (15-37) U/L ALT 39 (14-59) U/L Alkaline Phosphatase 45 L (46-116) U/L Total Protein 7.1 (6.4-8.2) g/dl Albumin 3.4 (3.4-5.0) g/dl Globulin 3.7 gm/dL Albumin/Globulin Ratio 0.9 L (1-2) Lipase 145 (73-393) U/L Urine Color (Yellow) Urine Appearance (Clear) Urine pH (5.0-8.0) Ur Specific [place] (1.005-1.030) Urine Protein (Negative) Urine Glucose (UA) (Negative) Urine Ketones (Negative) Urine Occult Blood (Negative) Urine Nitrite (Negative) Urine Bilirubin (Negative) Urine Urobilinogen (0.2-1.0) Ur Leukocyte Esterase (Negative) Urine RBC (0-5) /hpf Urine WBC (0-5) /hpf Ur Epithelial Cells (0-5) /hpf Urine Bacteria (FEW) /hpf Urine Mucus (FEW) /hpf Urine HCG, Qual Negative (NEGATIVE) 02/08/17 Range/Units 03:35 WBC (3.98-10.04) K/mm3 RBC (3.98-5.22) M/mm3 Hgb (11.2-15.7) gm/L Hct (34.1-44.9) % MCV (79.4-94.8) fl MCH (25.6-32.2) pg MCHC (32.2-35.5) g/dl RDW Std Deviation (36.4-46.3) fL Plt Count (182-369) K/mm3 MPV (9.4-12.3) fl Neutrophils % (Manual) (40-60) % Band Neutrophils % (0-10) % Lymphocytes % (Manual) (20-40) % Atypical Lymphs % % Monocytes % (Manual) (2-10) % Eosinophils % (Manual) (0.7-5.8) % Basophils % (Manual) (0.1-1.2) Platelet Estimate Plt Morphology Comment RBC Morph Comment Sodium (136-145) mEq/L Potassium (3.5-5.1) mEq/L Chloride (98-107) mEq/L Carbon Dioxide (21-32) mEq/L Anion Gap (5-15) BUN (7-18) mg/dL Creatinine (0.55-1.02) mg/dL Est Cr Clr Drug Dosing mL/min Estimated GFR (MDRD) (>60) mL/min BUN/Creatinine Ratio (14-18) Glucose (74-106) mg/dL Calcium (8.5-10.1) mg/dL Total Bilirubin (0.2-1.0) mg/dL AST (15-37) U/L ALT (14-59) U/L Alkaline Phosphatase (46-116) U/L Total Protein (6.4-8.2) g/dl Albumin (3.4-5.0) g/dl Globulin gm/dL Albumin/Globulin Ratio (1-2) Lipase (73-393) U/L Urine Color Yellow (Yellow) Urine Appearance Cloudy H (Clear) Urine pH 7.5 (5.0-8.0) Ur Specific [place] 1.015 (1.005-1.030) Urine Protein Negative (Negative) Urine Glucose (UA) Negative (Negative) Urine Ketones Negative (Negative) Urine Occult Blood Trace-lysed H (Negative) Urine Nitrite Positive H (Negative) Urine Bilirubin Negative (Negative) Urine Urobilinogen 0.2 (0.2-1.0) Ur Leukocyte Esterase Trace H (Negative) Urine RBC Not seen (0-5) /hpf Urine WBC 5-10 H (0-5) /hpf Ur Epithelial Cells 5-10 H (0-5) /hpf Urine Bacteria Many H (FEW) /hpf Urine Mucus Not seen (FEW) /hpf Urine HCG, Qual (NEGATIVE) Meds: Medications Generic Name Dose Route Start Last Admin Trade Name Freq PRN Reason Stop Dose Admin Sodium Chloride 1,000 mls @ 150 mls/hr 02/08/17 01:45 02/08/17 01:56 Normal Saline IV 150 mls/hr ASDIRECTED EZIO Administration Discontinued Medications Generic Name Dose Route Start Last Admin Trade Name Freq PRN Reason Stop Dose Admin Ketorolac Tromethamine 30 mg 02/08/17 01:51 02/08/17 01:57 Toradol IVPUSH 02/08/17 01:52 30 mg ONETIME STA Administration Trimethoprim/Sulfamethoxazole 1 tab 02/08/17 04:59 Septra Ds PO 02/08/17 05:00 ONETIME ONE - Re-Assessments/Exams Free Text/Narrative Re-Assessment/Exam: 02/08/17 03:50 CT of the abdomen and pelvis with oral and IV contrast is read by virtual radiology as: 1. Significant amount of retained feces throughout the colon. Correlate clinically for constipation. 2. Reflux of oral contrast into the distal esophagus. Evaluate for gastroesophageal reflux disease. 02/08/17 05:00 The patient's urinalysis is consistent with a urinary tract infection. I have ordered a urine culture and will start the patient on oral Bactrim. 02/08/17 05:19 Test results discussed with the patient. The CT scan of the abdomen and pelvis indicates that the patient has constipation, and, likely, GERD. The constipation is likely the cause of the patient's rectal pain, while the UTI may be responsible for her suprapubic discomfort. I explained in layman's terms the anatomy of the intestinal tract and how constipation can occur. I recommended that, since she is already constipated, she purchase over-the- counter mineral oil enemas and perform them at home until she gets good stool clearance. I suggested that she may require additional mineral oil. Once she has cleared the stool, she may then take [id number] Metamucil or even MiraLAX, to prevent future constipation. The patient was not happy with this recommendation. She stated that she was in too much pain and did not feel that she would be able to perform enemas on her own. She would like them to be performed here in the ED. I discussed this with the patient's nurse, Teresita. It is my opinion that performing enemas in the ED may be appropriate for elderly or otherwise incapacitated patients, however, for young and otherwise healthy patients, I do not see a reason why she could not perform them at home. Teresita will talk with the patient, and may consider performing a single enema here in the ED. 02/08/17 05:27 Teresita discussed the situation with the patient. The plan is to give the patient magnesium citrate and a mineral oil enema, discharge her home where she can start these, and if she needs additional supplies, these can be purchased over- the-counter. Departure - Departure Time of Disposition: 05:29 Disposition: Home, Self-Care 01 Condition: Good Clinical Impression: Constipation, GERD (gastroesophageal reflux disease), UTI (urinary tract infection) - Discharge Information Referrals: Didi Bal FILE CLERK DATA ENTRY [Primary Care Provider] - Forms: ED Department Discharge Additional Instructions: You were seen in the emergency room for lower abdominal pain, painful bowel movements, blood in your stool, nausea, low back pain, and chills. Workup in the ER included blood work, a urinalysis, a urine test, and a CT scan of your abdomen and pelvis. Your workup found significant stool throughout your colon, likely GERD, and a urinary tract infection. For your constipation, we recommend mineral oil enemas. You will likely require several. These can be purchased [id number]. If you cannot find mineral oil enemas, you can purchase saline enemas along with a bottle of mineral oil. Discard the saline and fill the bottle with mineral oil, then use as directed. Glycerin suppositories, sold [id number], may provide additional lubrication. If the mineral oil enemas are not providing adequate results, you can also take magnesium citrate, which can also be purchased [id number]. We recommend you drink only half a bottle at one time, saving the second half to drink an hour or two later if you are not getting adequate results. Magnesium citrate will likely cause abdominal cramps. Once you have adequately cleaned out your colon, consider taking over-the- counter Metamucil to prevent constipation. For your urinary tract infection, you have been started on the antibiotic Bactrim. Take one tablet every 12 hours, as prescribed. Stay adequately hydrated. A sample of your urine was sent for a urine culture. The results should be available by 02/11/2017. We recommend that you contact the office of Avelina Bal to have them check on the urine culture results, to make sure that you are on the right antibiotic. If any other problems, please do not hesitate to return to the ER. - My Orders Last 24 Hours: My Active Orders 02/08/17 01:37 Abdomen Pelvis w Cont [CT] Stat 02/08/17 01:45 Sodium Chloride 0.9% [Normal Saline] 1,000 ml IV ASDIRECTED 02/08/17 03:35 CULTURE URINE [RM] Stat - Assessment/Plan Last 24 Hours: My Active Orders 02/08/17 01:37 Abdomen Pelvis w Cont [CT] Stat 02/08/17 01:45 Sodium Chloride 0.9% [Normal Saline] 1,000 ml IV ASDIRECTED 02/08/17 03:35 CULTURE URINE [RM] Stat
[2017-02-08] MEDS ORDERED: Ketorolac 30 MG/ML SDV IVPUSH STA (01:51)
[2017-02-08] MEDS ORDERED: Sulfamethoxazole/Trimethoprim 800-160 MG Tab PO ONE (04:59)
[2017-02-08] MEDS ORDERED: Magnesium Citrate Solution 296 ML Bottle PO ONE (05:44)
--- NOTE | 2017-02-08 08:46 | CT ---
CT abdomen and pelvis Technique: Multiple axial sections were obtained from above the dome of the diaphragm inferiorly through the pubic symphysis. Intravenous and oral contrast was utilized. Delayed images were also obtained through the abdomen and pelvis. Comparison: No prior CT exam, prior abdominal x-ray of 02/06/17. Findings: Small portion of the visualized lung bases are clear. Liver shows no focal parenchymal abnormality. Contrast noted within the distal esophagus compatible with reflux. Low density abnormality is identified within the spleen measuring 1.4 cm in size which is most likely incidental. Adrenal glands show no nodule. Pancreas is within normal limits. Surgical clips are identified from prior cholecystectomy. Kidneys show symmetric contrast enhancement without hydronephrosis or mass. Aorta shows no aneurysmal dilatation. No retroperitoneal adenopathy or mesenteric abnormalities are seen. Lymph nodes are seen within the right lower abdomen. Appendix not identified. No pelvic mass or adenopathy is seen. Delayed images show contrast within the ureters and bladder. No free fluid or inflammatory change is identified. Mild increased stool seen throughout the colon. Bone window settings were reviewed which appear within normal limits for the patient's age. Small umbilical hernia is seen containing fat. Impression: 1. Findings felt to be incidental as noted above. Nothing acute is appreciated. No perirectal abscess is identified on this exam. Diagnostic code #2 I agree with preliminary report issued by [facility] ([facility] preliminary report dictated on 02/08/17, 4:46 AM Central Time)
== END 2017-02-08 06:00 | disposition home or self-care (01) ==
LOC: JD.ED 00:03
DX: N39.0 Urinary tract infection, site not specified (principal); K59.00 Constipation, unspecified; K21.9 Gastro-esophageal reflux disease without esophagitis; I10 Essential (primary) hypertension; E11.9 Type 2 diabetes mellitus without complications; E03.9 Hypothyroidism, unspecified; Z77.22 Contact with and (suspected) exposure to environmental tobacco smoke (acute) (chronic); Z79.84 Long term (current) use of oral hypoglycemic drugs; Z79.899 Other long term (current) drug therapy; Z88.5 Allergy status to narcotic agent
CPT/HCPCS: 36415; 74177; 80053; 81001; 81025; 83690; 85025; 87086; 96361; 96374; 99284; A9270; J1885; J7040; 87088; 87186

== ENCOUNTER 2018-04-14 20:00 | Emergency (ER) | payer BC, MEDICAID ==
[2018-04-14 20:11] VITALS: BP 140/89
--- NOTE | 2018-04-14 20:17 | EDM.PDOC ---
ED HPI GENERAL MEDICAL PROBLEM - General Chief Complaint: Abdominal Pain Stated Complaint: EXTREME PAIN IN LEFT LOWER ABDOMINAL AREA Time Seen by Provider: 04/14/18 20:16 Source of Information: Reports: Patient History Limitations: Reports: No Limitations - History of Present Illness INITIAL COMMENTS - FREE TEXT/NARRATIVE: 32-year-old female presents to the ED with acute onset of left karen-abdominal pain. States about 1530 hrs. today she is developed sudden onset of pain mid left lateral abdomen. This was fairly sharp and stabbing and since that time it' s been more of a fluttering pressure discomfort. She did have one piece of pizza for supper tonight and pain started within an hour of this. Pain on the Route to the hospital was rated as 9-10 and quite sharp and stabbing. It is eased off to about a 5 out of 10 at this time. Slight pain radiating into her back but not truly into the flank. It is felt most the left mid abdomen. Last normal menstrual period was 2 and half weeks ago and on time and as expected. Tunnel surgery includes laparoscopic cholecystectomy. She has pain did cause nausea without vomiting. Does not drink much alcohol and has never had any pancreatitis. No history of renal stones also had an appendectomy. Onset: Today Onset Date: 04/14/18 Onset Time: 15:30 Duration: Hour(s): Location: Reports: Abdomen (Left hemiabdomen in epigastrium.) Quality: Reports: Ache, Pressure, Other (Sharp stabbing colicky component to the pain.) Severity: Moderate (Only 5-6 out of 10) Improves with: Reports: None Worsens with: Reports: Eating Context: Denies: Activity, Exercise, Lifting, Sick Contact, Trauma, Other Associated Symptoms: Reports: Nausea/Vomiting (Nausea with no vomiting), Other. 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 Left Lower Abdominal Pain Score (Numeric/FACES): 8 - Related Data Allergies Allergy/AdvReac Type Severity Reaction Status Date / Time morphine Allergy Hives Verified 02/03/18 17:16 Home Meds: Home Meds Levothyroxine [Synthroid] 112 mcg PO DAILY 10/30/16 [History] Topiramate [Topamax] 50 mg PO BEDTIME 09/27/17 [History] Omeprazole 40 mg PO DAILY 04/14/18 [History] Polyethylene Glycol 3350 [MiraLAX] 17 gm PO DAILY #1 cont 04/14/18 [Rx] metFORMIN [Glucophage XR] 500 mg PO DAILY 04/14/18 [History] Past Medical History Cardiovascular History: Reports: Hypertension Gastrointestinal History: Reports: Gastritis 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: Neurological History: Reports: Migraines Endocrine/Metabolic History: Reports: Diabetes, Type II, Hypothyroidism, Obesity /BMI 30+ Other Endocrine/Metabolic History: recently started on Metformin for insulin resistance - Past Surgical History GI Surgical History: Reports: Appendectomy, Cholecystectomy, Hernia, Abdominal Female Surgical History: Reports: Section, Tubal Ligation Other Female Surgeries/Procedures: ovarian cysts Social & Family History - Family History Family Medical History: Noncontributory - Tobacco Use Smoking Status *Q: Never Smoker - Caffeine Use Caffeine Use: Reports: Energy Drinks - Recreational Drug Use Recreational Drug Use: No - Living Situation & Occupation Living situation: Reports: , with Spouse, with Family (8 kids) Occupation: Unemployed ED ROS GENERAL - Review of Systems Review Of Systems: See Below Constitutional: Reports: Decreased Appetite. Denies: Fever, Chills, Malaise, Weakness, Fatigue, Weight Loss HEENT: Reports: No Symptoms Respiratory: Reports: No Symptoms Cardiovascular: Reports: No Symptoms Endocrine: Reports: No Symptoms GI/Abdominal: Reports: Abdominal Pain, Constipation (See history of present illness issues with constipation in the past.), Nausea. Denies: Diarrhea, Vomiting (Associated with the pain but no vomiting) : Reports: No Symptoms, Other (Last normal menstrual period 2 and half weeks ago.) Musculoskeletal: Reports: Back Pain Skin: Reports: No Symptoms (Chronic mid low back pain) Neurological: Reports: No Symptoms Psychiatric: Reports: No Symptoms Hematologic/Lymphatic: Reports: No Symptoms Immunologic: Reports: No Symptoms ED EXAM, GI/ABD - Physical Exam Exam: See Below Exam Limited By: No Limitations General Appearance: Alert, WD/WN, Mild Distress, Other (Appears to be in mild discomfort.) Eyes: Bilateral: Normal Appearance (No scleral icterus) Respiratory/Chest: No Respiratory Distress, Lungs Clear, Normal Breath Sounds, No Accessory Muscle Use Cardiovascular: Normal Peripheral Pulses, Regular Rate, Rhythm, No Edema, No Gallop, No Murmur, No Rub GI/Abdominal Exam: Normal Bowel Sounds, Soft, No Organomegaly, No Abnormal Bruit , No Mass, Pelvis Stable, Guarding (Left hemiabdomen), Tender (Mildly obese. Emesis is mostly epigastric and left upper quadrant along the costal margin and mid lateral left abdominal wall to palpation.), Other. No: Rigid, Rebound Back Exam: Normal Inspection, Full Range of Motion. No: CVA Tenderness (L), CVA Tenderness (R) Extremities: Normal Inspection, Normal Range of Motion, Non-Tender, No Pedal Edema Neurological: Alert, Oriented, CN II-XII Intact, Normal Cognition Psychiatric: Normal Affect, Normal Mood Skin Exam: Warm, Dry, Intact, Normal Color, No Rash Course - Vital Signs Last Recorded V/S: Last Vital Signs Temp 36.1 C 04/14/18 20:08 Pulse 91 04/14/18 20:08 Resp 18 04/14/18 20:08 BP 140/89 04/14/18 20:08 Pulse Ox 100 04/14/18 20:08 - Orders/Labs/Meds Orders: Active Orders 24 hr Category Date Time Status Abdomen 1V Flat [CR] Stat Exams 04/14/18 20:23 Taken Labs: Laboratory Tests 04/14/18 04/14/18 Range/Units 20:45 20:45 WBC 10.49 H (3.98-10.04) K/mm3 RBC 5.04 (3.98-5.22) M/mm3 Hgb 11.4 (11.2-15.7) gm/L Hct 37.8 (34.1-44.9) % MCV 75.0 L (79.4-94.8) fl MCH 22.6 L (25.6-32.2) pg MCHC 30.2 L (32.2-35.5) g/dl RDW Std Deviation 43.9 (36.4-46.3) fL Plt Count 314 (182-369) K/mm3 MPV 11.5 (9.4-12.3) fl Neutrophils % (Manual) 62 H (40-60) % Band Neutrophils % 0 (0-10) % Lymphocytes % (Manual) 30 (20-40) % Atypical Lymphs % 0 % Monocytes % (Manual) 5 (2-10) % Eosinophils % (Manual) 2 (0.7-5.8) % Basophils % (Manual) 1 (0.1-1.2) Platelet Estimate Adequate Plt Morphology Comment Normal Anisocytosis 1+ slight Microcytosis 1+ slight RBC Morph Comment Not Reportable Sodium 142 (136-145) mEq/L Potassium 3.4 L (3.5-5.1) mEq/L Chloride 108 H (98-107) mEq/L Carbon Dioxide 20 L (21-32) mEq/L Anion Gap 17.4 H (5-15) BUN 15 (7-18) mg/dL Creatinine 0.8 (0.55-1.02) mg/dL Est Cr Clr Drug Dosing 82.74 mL/min Estimated GFR (MDRD) > 60 (>60) mL/min BUN/Creatinine Ratio 18.8 H (14-18) Glucose 96 (74-106) mg/dL Calcium 9.3 (8.5-10.1) mg/dL Total Bilirubin 0.2 (0.2-1.0) mg/dL AST 18 (15-37) U/L ALT 33 (14-59) U/L Alkaline Phosphatase 62 (46-116) U/L C-Reactive Protein 0.8 (<1.0) mg/dL Total Protein 7.7 (6.4-8.2) g/dl Albumin 3.8 (3.4-5.0) g/dl Globulin 3.9 gm/dL Albumin/Globulin Ratio 1.0 (1-2) Lipase 202 (73-393) U/L Meds: Medications Discontinued Medications Generic Name Dose Route Start Last Admin Trade Name Diomedes PRN Reason Stop Dose Admin Dicyclomine HCl 20 mg 04/14/18 21:33 04/14/18 21:38 Bentyl PO 04/14/18 21:34 20 mg ONETIME ONE Administration Hydromorphone HCl 1 mg 04/14/18 20:22 04/14/18 20:53 Dilaudid IVPUSH 04/14/18 20:23 1 mg ONETIME ONE Administration Sodium Chloride 1,000 mls @ 500 mls/hr 04/14/18 20:30 04/14/18 20:49 Normal Saline IV 500 mls/hr ASDIRECTED EZIO Administration Ketorolac Tromethamine 30 mg 04/14/18 20:30 04/14/18 20:51 Toradol IVPUSH 30 mg ONETIME EZIO Administration Magnesium Citrate 296 ml 04/14/18 21:32 04/14/18 21:38 Citrate Of Magnesia PO 04/14/18 21:33 296 ml ONETIME ONE Administration Metoclopramide HCl 7.5 mg 04/14/18 20:22 04/14/18 20:49 Reglan IVPUSH 04/14/18 20:23 7.5 mg ONETIME ONE Administration - Radiology Interpretation Free Text/Narrative:: 32-year-old female presents to the ED with left karen-abdominal pain that started about 1530 hrs. this afternoon. Initially was quite intense for about 15 -20 minutes and then eased up. He came back after eating a piece of pizza at suppertime. Pain was reported to be 910 and excruciating for a period of time. Patient has had no diarrhea. Pain did cause her to have some nausea without any vomiting. Pain is eased up somewhat since she came to the ED it's currently rated as 6 out of 10. Examination reveals bowel sounds in all 4 quadrants. Tenderness epigastric left upper quadrant along the left hemiabdomen laterally. Palpable left colon left upper quadrant. Mild guarding with no rebound tenderness. Plan IV normal saline at 500 mils an hour. Toradol 30 mg IV for pain relief with Reglan 7.5 mg IV.Dilaudid 1mg IV. Labs to be routine with a serum lipase and CRP urinalysis. One view the abdomen to be obtained. - Re-Assessments/Exams Free Text/Narrative Re-Assessment/Exam: 04/14/18 21:27 Labs reveal a normal white count at 10.49 differential pending. Hemoglobin is slightly low 11.4 with hematocrit of 37.8. MCV is 75 suggesting iron deficiency. Sodium 142 with potassium of 3.4. Toward 108 with a bicarbonate of 20. Anion gap is 17.4 by mild metabolic acidosis. BUN is 15 with a creatinine of 0.8. Glucose is 96 with a calcium of 9.3. Liver function is normal. C-reactive protein is 0.8. Total protein is 7.7 with an albumin fraction of 3.8. Lipase is normal at 202. KUB reveals increased stool throughout the upper right hemicolon spot hepatic flexure and across the entire transverse colon and most of the descending colon. The rectal vault is for the most part empty. He did lay noting a jackknife in her left in pocket.Will give Bentyl 20mg po now as well. 04/14/18 21:32 patient reports pain is much improved. Plan will be to send her home with magnesium citrate 10 ounces by mouth first thing tomorrow morning with 6 ounces of juice of choice to provide bowel cleanse. I then strongly advised her to purchase MiraLAX powder and use 17 g or 1 scoop daily to provide regular bowel movements since this is a recurrent chronic problem for her. Departure - Departure Time of Disposition: 21:41 Disposition: Home, Self-Care 01 Condition: Fair Clinical Impression: Constipation by delayed colonic transit Abdominal pain Qualifiers: Abdominal location: upper abdomen, unspecified Qualified Code(s): R10.10 - Upper abdominal pain, unspecified - Discharge Information *PRESCRIPTION DRUG MONITORING PROGRAM REVIEWED*: Not Applicable *COPY OF PRESCRIPTION DRUG MONITORING REPORT IN PATIENT LIV: Not Applicable Prescriptions: Polyethylene Glycol 3350 [MiraLAX] 17 gm PO DAILY #1 cont Instructions: Constipation, Adult Referrals: PCP,Unknown [Primary Care Provider] - Forms: ED Department Discharge Additional Instructions: Evaluation in the emergency him today in regards to recurrent left-sided karen- abdominal pain and epigastric pain on examination since mid afternoon today. Examination of the abdomen revealed a nonsurgical abdomen but tenderness in the epigastrium and left upper quadrant and left mid lateral abdomen. Lab testing proved to be completely normal. X-ray of the abdomen confirms constipation with a large amount of stool throughout the transverse colon which lives across the upper abdomen as well as portions of the right hemicolon and left hemicolon. This is compatible with chronic constipation issues and this is the reason the pain is worsened by eating. You're treated in the ED with intravenous fluids and pain medication Dilaudid. Also given Bentyl 20 mg at the time of discharge to get to through the night. Treatment in the morning his bowel cleanse with the use of magnesium citrate for Citroma. Take all 10 ounces mixed with 6 ounces of juice of choice or Powerade/Gatorade. This will start to work in 1-2 hours and bowels will usually move 3 or 4 times often ending in some degree of diarrhea. After this I would suggest starting MiraLAX powder 17 g or 1 scoop every day to prevent constipation from occurring since his is been a recurrent problem for you. Follow-up with personal care physician if any further problems occur. - My Orders Last 24 Hours: My Active Orders 04/14/18 20:23 Abdomen 1V Flat [CR] Stat - Assessment/Plan Last 24 Hours: My Active Orders 04/14/18 20:23 Abdomen 1V Flat [CR] Stat
[2018-04-14] MEDS ORDERED: Metoclopramide 10 MG/2 ML SDV IVPUSH ONE (20:22)
[2018-04-14] MEDS ORDERED: HYDROmorphone 1 MG/ML Syringe IVPUSH ONE (20:22)
[2018-04-14] MEDS ORDERED: Ketorolac 30 MG/ML SDV IVPUSH SCH (20:30)
[2018-04-14] MEDS ORDERED: Sodium Chloride 0.9% 1,000 ML IV SCH (20:30)
[2018-04-14] MEDS ORDERED: Magnesium Citrate Solution 296 ML Bottle PO ONE (21:32)
[2018-04-14] MEDS ORDERED: Dicyclomine 10 MG Cap PO ONE (21:33)
--- NOTE | 2018-04-15 07:21 | CR ---
Abdomen: Supine view of the abdomen was obtained. Comparison: Prior upright abdominal x-ray of 02/03/18. Surgical clips are seen from prior cholecystectomy. Incidental sterilization clips are seen within the pelvis. Stool is noted within the right and transverse colon. Bowel gas pattern is normal. No soft tissue abnormality is seen. No abnormal calcifications are noted. Bony structures appear within normal limits. Impression: 1. Incidental findings. Nothing acute is seen. Diagnostic code #2
== END 2018-04-14 21:51 | disposition home or self-care (01) ==
LOC: JD.ED 20:00
DX: K59.01 Slow transit constipation (principal); E11.9 Type 2 diabetes mellitus without complications; E03.9 Hypothyroidism, unspecified; I10 Essential (primary) hypertension; Z79.899 Other long term (current) drug therapy
CPT/HCPCS: 36415; 74018; 80053; 83690; 85007; 85027; 86140; 96361; 96374; 96375; 99284; A9270; J1170; J1885; J2765; J7040

== ENCOUNTER 2018-04-29 19:14 | Emergency (ER) | payer BC, MEDICAID ==
[2018-04-29] MEDS ORDERED: Alum Hydrox/Mag Hydrox/Simeth 30 ML, Lidocaine 2% 15 ML PO STA ×2 (20:48)
--- NOTE | 2018-04-29 20:50 | EDM.PDOC ---
ED HPI GENERAL MEDICAL PROBLEM - General Chief Complaint: Chest Pain Stated Complaint: CHEST PAIN Time Seen by Provider: 04/29/18 20:26 Source of Information: Reports: Patient, RN Notes Reviewed History Limitations: Reports: No Limitations - History of Present Illness INITIAL COMMENTS - FREE TEXT/NARRATIVE: The patient states that she developed retrosternal chest pain, sharp and stabbing in character, this morning. She states that it has been constant all day, although states that it was initially less severe, and has progressively gotten more severe over the course of the day. The pain does not radiate. It is made worse with movement and with breathing. She felt nausea last night, which has continued into today, although she has not had any emesis. She describes some occasional vertigo, but no lightheadedness. She denies having dyspnea or diaphoresis. She acknowledges that she is feeling anxious. No prior similar symptoms. The patient states that she has not tried any [id number] or home remedies to treat her symptoms. The patient's PCP is Samia Calvillo. 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: , Other (See Below) (Ovarian cysts) Neurological History: Reports: Migraines Endocrine/Metabolic History: Reports: Diabetes, Type II, Hypothyroidism, Obesity /BMI 30+ - Past Surgical History GI Surgical History: Reports: Appendectomy, Cholecystectomy (2002), Hernia, Abdominal Female Surgical History: Reports: Section (x 4), Tubal Ligation Social & Family History - Family History Family Medical History: Noncontributory - Tobacco Use Smoking Status *Q: Never Smoker - Caffeine Use Caffeine Use: Reports: Energy Drinks - Alcohol Use Alcohol Use History: Yes Alcohol Use Frequency: Socially - Recreational Drug Use Recreational Drug Use: No - Living Situation & Occupation Living situation: Reports: , with Spouse, with Family (8 kids) 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 ED EXAM, GENERAL - Physical Exam Exam: See Below Exam Limited By: No Limitations General Appearance: Alert, WD/WN, No Apparent Distress, Anxious Eye Exam: Bilateral Eye: EOMI, Normal Inspection Ears: Normal External Exam, Hearing Grossly Normal Nose: Normal Inspection Throat/Mouth: Normal Inspection, Normal Lips, Normal Voice, No Airway Compromise Head: Atraumatic, Normocephalic Neck: Normal Inspection, Full Range of Motion Respiratory/Chest: No Respiratory Distress, Lungs Clear, Normal Breath Sounds, No Accessory Muscle Use, Other (Sternal tenderness, however, the patient states that this is not the same pain as that which brought her to the ED) Cardiovascular: Normal Peripheral Pulses, Regular Rate, Rhythm, No Gallop, No JVD, No Murmur, No Rub Peripheral Pulses: 4+: Radial (L), Radial (R) GI/Abdominal: Normal Bowel Sounds, Soft, No Organomegaly, No Distention, No Abnormal Bruit, No Mass, Tender (Epigastric area, however, the patient states that this is not the same pain as that which brought her to the ED) (Female) Exam: Deferred Rectal (Female) Exam: Deferred Back Exam: Normal Inspection, Full Range of Motion, NT Extremities: Normal Inspection, Normal Range of Motion, No Pedal Edema, Normal Capillary Refill Neurological: Alert, Oriented, Normal Cognition, No Motor/Sensory Deficits Psychiatric: Anxious Skin Exam: Warm, Dry, Intact, Normal Color, No Rash EKG INTERPRETATION EKG Date: 04/29/18 Time: 20:08 Rhythm: NSR Rate (Beats/Min): 73 [place]: Normal P-Wave: Enlarged (LAR) QRS: Normal (Early transition) ST-T: Normal QT: Normal Comparison: No Change (01/31/2017) Course - Vital Signs Last Recorded V/S: Last Vital Signs Temp 36.7 C 04/29/18 21:02 Pulse 77 04/29/18 21:02 Resp 19 04/29/18 21:02 BP 119/80 04/29/18 21:02 Pulse Ox 96 04/29/18 21:02 - Orders/Labs/Meds Orders: Active Orders 24 hr Category Date Time Status EKG Documentation Completion [RC] ASDIRECTED Care 04/29/18 20:01 Active Chest 2V [CR] Stat Exams 04/29/18 20:48 Taken EKG 12 Lead [EK] Stat Ther 04/29/18 20:01 Ordered Labs: Laboratory Tests 04/29/18 04/29/18 Range/Units 21:17 21:17 WBC 13.46 H (3.98-10.04) K/mm3 RBC 5.01 (3.98-5.22) M/mm3 Hgb 11.5 (11.2-15.7) gm/L Hct 37.9 (34.1-44.9) % MCV 75.6 L (79.4-94.8) fl MCH 23.0 L (25.6-32.2) pg MCHC 30.3 L (32.2-35.5) g/dl RDW Std Deviation 44.9 (36.4-46.3) fL Plt Count 359 (182-369) K/mm3 MPV 11.6 (9.4-12.3) fl Neutrophils % (Manual) 64 H (40-60) % Band Neutrophils % 0 (0-10) % Lymphocytes % (Manual) 31 (20-40) % Atypical Lymphs % 0 % Monocytes % (Manual) 2 (2-10) % Eosinophils % (Manual) 3 (0.7-5.8) % Basophils % (Manual) 0 L (0.1-1.2) Platelet Estimate Adequate Hypochromasia 1+ slight Microcytosis 1+ slight Ovalocytes Few RBC Morph Comment Not Reportable Sodium 140 (136-145) mEq/L Potassium 4.0 (3.5-5.1) mEq/L Chloride 107 (98-107) mEq/L Carbon Dioxide 23 (21-32) mEq/L Anion Gap 14.0 (5-15) BUN 12 (7-18) mg/dL Creatinine 0.7 (0.55-1.02) mg/dL Est Cr Clr Drug Dosing 94.56 mL/min Estimated GFR (MDRD) > 60 (>60) mL/min BUN/Creatinine Ratio 17.1 (14-18) Glucose 91 (74-106) mg/dL Calcium 9.0 (8.5-10.1) mg/dL Total Bilirubin 0.3 (0.2-1.0) mg/dL AST 18 (15-37) U/L ALT 25 (14-59) U/L Alkaline Phosphatase 58 (46-116) U/L Troponin I < 0.017 (0.00-0.056) ng/mL Total Protein 7.4 (6.4-8.2) g/dl Albumin 3.8 (3.4-5.0) g/dl Globulin 3.6 gm/dL Albumin/Globulin Ratio 1.1 (1-2) Meds: Medications Discontinued Medications Generic Name Dose Route Start Last Admin Trade Name Freq PRN Reason Stop Dose Admin Al Hydroxide/Mg Hydroxide 30 0 ml 04/29/18 20:48 04/29/18 21:01 ml/ Lidocaine HCl 15 ml PO 04/29/18 20:49 45 ml ONETIME STA Administration - Re-Assessments/Exams Free Text/Narrative Re-Assessment/Exam: 04/29/18 20:49 By history, the patient's retrosternal chest pain is unlikely to be cardiac, and her ECG is consistent with that. I suspect that her pain is gastroenterologic in etiology. I have ordered a workup that includes blood work and a chest x-ray, all of which I anticipate will be normal. In the meantime, the patient will be given a GI cocktail. 04/29/18 21:17 2-view chest radiograph appears to be grossly normal. The cardiac silhouette is within normal limits. No pulmonary vascular congestion. No pleural effusions. No focal infiltrate. No pneumothorax. Formal read per the Radiologist pending. 04/29/18 22:33 Test results discussed with the patient. The patient states that she had fairly good relief following the GI cocktail, indicating that her symptoms are gastroenterologic. Her workup tonight is otherwise unremarkable. The patient states that she is currently taking omeprazole once a day, which may have simply stopped working for her. I will submit a prescription for Nexium, although unfortunately, we do not carry that medicine at this facility. I will recommend to the patient that if the Nexium does not begin working within a few days, that she follow-up with her PCP to arrange for a repeat EGD. Departure - Departure Time of Disposition: 22:34 Disposition: Home, Self-Care 01 Condition: Good Clinical Impression: GERD (gastroesophageal reflux disease) - Discharge Information *PRESCRIPTION DRUG MONITORING PROGRAM REVIEWED*: Not Applicable *COPY OF PRESCRIPTION DRUG MONITORING REPORT IN PATIENT LIV: Not Applicable Referrals: Samia Calvillo PA-C [Primary Care Provider] - Forms: ED Department Discharge Additional Instructions: You were seen in the emergency room for chest pain, felt behind her sternum, along with nausea, dizziness, and anxiety. Workup in the ER included blood work, a chest x-ray, and an ECG. Your entire workup was unremarkable. You have not suffered a heart attack. You do not have pneumonia. You do not have a collapsed lung. You had some relief following a GI cocktail, indicating that your symptoms are most likely due to acid reflux. As discussed, it is possible that the omeprazole that you have been taking has simply stopped working. One option was to increase your omeprazole to one tablet twice a day, the other option was to switch to a different proton pump inhibitor. You chose to switch to a different proton pump inhibitor. A prescription for esomeprazole (Nexium) has been sent to the [facility], located just south and across [address] from [facility]. Take one tablet of esomeprazole daily, as prescribed. Be aware that proton pump inhibitors, including esomeprazole, usually take about 3 days before they start working. If your symptoms have not started to improve after 3 days of taking esomeprazole , we recommend that you follow-up with your PCP, Samia Calvillo, to arrange for an outpatient EGD (scope of your stomach). If any other problems, please do not hesitate to return to the ER. - My Orders Last 24 Hours: My Active Orders 04/29/18 20:01 EKG Documentation Completion [RC] ASDIRECTED EKG 12 Lead [EK] Stat 04/29/18 20:48 Chest 2V [CR] Stat - Assessment/Plan Last 24 Hours: My Active Orders 04/29/18 20:01 EKG Documentation Completion [RC] ASDIRECTED EKG 12 Lead [EK] Stat 04/29/18 20:48 Chest 2V [CR] Stat
[2018-04-29 21:03] VITALS: BP 119/80
--- NOTE | 2018-04-30 07:12 | CR ---
Chest: Two views of the chest were obtained. Comparison: Prior chest x-ray of 01/31/17. Heart is slightly enlarged. Upper mediastinum is normal. Focal pleural thickening is seen within the lateral left chest. Lungs otherwise are clear. Bony structures appear within normal limits for the patient's age. Impression: 1. Mild cardiomegaly. Heart size is unusual for a patient of this age. If etiology is not known, recommend echocardiogram. 2. Slight pleural thickening within the lateral left chest, noncontrast chest CT could be obtained to further evaluate. 3. Nothing acute is otherwise seen. Diagnostic code #9
== END 2018-04-29 22:45 | disposition home or self-care (01) ==
LOC: JD.ED 19:14
DX: K21.9 Gastro-esophageal reflux disease without esophagitis (principal); E11.9 Type 2 diabetes mellitus without complications; Z88.5 Allergy status to narcotic agent; Z79.899 Other long term (current) drug therapy; Z79.84 Long term (current) use of oral hypoglycemic drugs
CPT/HCPCS: 36415; 71046; 80053; 84484; 85007; 85027; 93005; 99285; A9270; 93010; 99283

== ENCOUNTER 2018-06-12 19:54 | Emergency (ER) | payer BC, MEDICAID ==
[2018-06-12 20:03] VITALS: BP 119/87
[2018-06-12] MEDS ORDERED: Ketorolac 30 MG/ML SDV IM ONE (20:21)
[2018-06-12] MEDS ORDERED: Orphenadrine 100 MG Tab.ER PO ONE (20:22)
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
--- NOTE | 2018-06-12 21:00 | CT ---
CT cervical spine Technique: Multiple axial sections were obtained from above C1 inferiorly to the bottom of T1. Reconstructed sagittal and coronal images were reviewed. Findings: Posterior skull base is intact. Visualized mastoid sinuses are clear. Vertebral body heights and disc spaces are maintained. No bony central or bony neural foraminal stenosis is seen. No fracture or subluxation is seen. Impression: 1. Nothing acute is seen on CT study of the cervical spine. Diagnostic code #1
--- NOTE | 2018-06-12 21:00 | CR ---
Chest: 2 views of the chest were obtained. Comparison: Previous chest x-ray 04/29/18. Heart size is slightly prominent for the patient's age. Lungs are clear. Bony structures are unremarkable for the patient's age. Surgical clips are seen within the upper abdomen. Impression: 1. Heart size is more prominent than usually seen in a patient of this age. This is similar to prior exam. 2. Nothing acute is otherwise seen on 2 view chest x-ray. Diagnostic code #3
== END 2018-06-12 21:35 | disposition home or self-care (01) ==
LOC: JD.ED 19:54
DX: S80.12XA Contusion of left lower leg, initial encounter (principal); M54.6 Pain in thoracic spine; M54.2 Cervicalgia; I10 Essential (primary) hypertension; E11.9 Type 2 diabetes mellitus without complications; E03.9 Hypothyroidism, unspecified; K21.9 Gastro-esophageal reflux disease without esophagitis; Z79.84 Long term (current) use of oral hypoglycemic drugs; Z79.899 Other long term (current) drug therapy; Z88.5 Allergy status to narcotic agent; Y04.8XXA Assault by other bodily force, initial encounter
CPT/HCPCS: 71046; 72125; 96372; 99284; A9270; J1885; 99283